=== PATIENT | male | born 1965 | race Caucasian/White ===

== ENCOUNTER 2021-08-30 13:33 | Emergency (ER) | payer OTHER ==
[2021-08-30 15:36] LABS: SARS-COV-2 RT PCR NEGATIVE (NEGATIVE)
--- NOTE | 2021-08-30 16:10 | EDPHYS ---
Physician Documentation [facility] Name: Chris Pinedo Age: 56 yrs Sex: Male : 1965 Arrival Date: 08/30/2021 Time: 13:45 Bed DIS1 Private MD: ED Physician Joaquin Tarango HPI: 08/30 14:17 This 56 yrs old Male presents to ER via Ambulatory with complaints of Sore Throat. jmm 14:17 The patient presents with sore throat. Onset: The symptoms/episode began/occurred jmm gradually, today. Modifying factors: The symptoms are alleviated by nothing, the symptoms are aggravated by nothing. Associated signs and symptoms: Pertinent negatives cough, fever. The patient has not experienced similar symptoms in the past. Historical: - Allergies: 14:12 No Known Allergies; aa5 - PMHx: 14:12 None; aa5 - PSHx: 14:12 None; aa5 - Immunization history:: Client reports receiving the 2nd dose of the Covid vaccine. - Social history:: Smoking status: Patient denies any tobacco usage or history of. ROS: 14:17 Constitutional: Negative for fever, chills, and weight loss. jmm 14:17 ENT: Positive for sore throat. 14:17 All other systems are negative. Exam: 14:17 Constitutional: This is a well developed, well nourished patient who is awake, alert, jmm and in no acute distress. Head/Face: atraumatic. Eyes: EOMI, no conjunctival erythema appreciated 14:17 Neck: Trachea midline, Supple Chest/axilla: Normal chest wall appearance and motion. Cardiovascular: Regular rate and rhythm. No edema appreciated Respiratory: Normal respirations, no respiratory distress appreciated Abdomen/GI: Non distended, soft Back: Normal ROM Skin: General appearance color normal MS/ Extremity: Moves all extremities, no obvious deformities appreciated, no edema noted to the lower extremities Neuro: Awake and alert Psych: Behavior is normal, Mood is normal, Patient is cooperative and pleasant 14:17 ENT: Posterior pharynx: Tonsils: enlarged on the left, with erythema, erythema, that is moderate. Vital Signs: 14:12 BP 144 / 83; Pulse 83; Resp 16 S; Temp 98.3(O); Pulse Ox 100% on R/A; Weight 67.13 kg aa5 (R); Height 5 ft. 8 in. (172.72 cm) (R); 14:12 Body Mass Index 22.50 (67.13 kg, 172.72 cm) aa5 MDM: 14:17 Patient medically screened. [facility] 16:08 Data reviewed: vital signs, nurses notes. Counseling: I had a detailed discussion with [facility] the patient and/or guardian regarding: the historical points, exam findings, and any diagnostic results supporting the discharge/admit diagnosis, the need for outpatient follow up, to return to the emergency department if symptoms worsen or persist or if there are any questions or concerns that arise at home. ED course: Patient is alert and non toxic in appearance in the ED. Patient advised to follow up with pcp and otherwise given strict return precautions, Patient understood and agrees with the plan of care. . 08/30 14:18 Order name: Strep; Complete Time: 15:01 [facility] 08/30 14:18 Order name: COVID-19/FLU A+B (Document "Date of Onset" if Symptomatic); Complete Time: [facility] 15:49 08/30 14:46 Order name: Throat Culture EDMN Administered Medications: No medications were administered Disposition: 18:00 Co-signature as Attending Physician, Joaquin Tarango MD I agree with the assessment and kdr plan of care. Disposition Summary: 08/30/21 16:09 Discharge Ordered Location: Home [facility] Condition: Stable [facility] Diagnosis - Acute pharyngitis, unspecified [facility] Followup: [facility] - With: Private Physician - When: 2 - 3 days - Reason: Recheck today's complaints, Continuance of care, Re-evaluation by your physician Discharge Instructions: - Discharge Summary Sheet [facility] - Pharyngitis [facility] Forms: - Medication Reconciliation Form [facility] - Thank You Letter [facility] - Antibiotic Education [facility] - Prescription Opioid Use [facility] Prescriptions: - Amoxicillin 875 mg Oral Tablet - take 1 tablet by ORAL route every 12 hours for 10 days; 20 tablet; Refills: 0, [facility] Product Selection Permitted Signatures: Dispatcher [employer] EDJoaquin Lilly MD MD kdr Mickail, Joel, PA PA [facility] Lindsey Ybarra, RN RN aa5
--- NOTE | 2021-08-30 16:10 | ER ---
Nurse's Notes [facility] Name: Chris Pinedo Age: 56 yrs Sex: Male : 1965 Arrival Date: 08/30/2021 Time: 13:45 Bed DIS1 Private MD: Diagnosis: Acute pharyngitis, unspecified Presentation: 08/30 14:12 Chief complaint: Patient states: sore throat since this morning. Denies any other aa5 symptoms. Coronavirus screen: sore throat. Ebola Screen: No symptoms or risks identified at this time. Initial Sepsis Screen: Does the patient meet any 2 criteria? No. Patient's initial sepsis screen is negative. Does the patient have a suspected source of infection? No. Patient's initial sepsis screen is negative. Risk Assessment: Do you want to hurt yourself or someone else? Patient reports no desire to harm self or others. Onset of symptoms was August 30, 2021. 14:12 Method Of Arrival: Ambulatory aa5 14:12 Acuity: STEPHANIE 4 aa5 Historical: - Allergies: 14:12 No Known Allergies; aa5 - PMHx: 14:12 None; aa5 - PSHx: 14:12 None; aa5 - Immunization history:: Client reports receiving the 2nd dose of the Covid vaccine. - Social history:: Smoking status: Patient denies any tobacco usage or history of. Screenin:48 Abuse screen: Denies threats or abuse. Denies injuries from another. Nutritional iw screening: No deficits noted. Tuberculosis screening: No symptoms or risk factors identified. Fall Risk None identified. Assessment: 15:48 Reassessment: Patient appears in no apparent distress at this time. Patient and/or iw family updated on plan of care and expected duration. Pain level reassessed. Patient is alert, oriented x 3, equal unlabored respirations, skin warm/dry/pink. Vital Signs: 14:12 BP 144 / 83; Pulse 83; Resp 16 S; Temp 98.3(O); Pulse Ox 100% on R/A; Weight 67.13 kg aa5 (R); Height 5 ft. 8 in. (172.72 cm) (R); 14:12 Body Mass Index 22.50 (67.13 kg, 172.72 cm) aa5 ED Course: 13:45 Patient arrived in ED. am2 13:45 Alon Hoang PA is PHCP. [facility] 13:45 Joaquin Tarango MD is Attending Physician. [facility] 14:12 Arm band placed on. aa 14:14 Triage completed. aa 15:48 Della Amaya, RN is Primary Nurse. iw 15:49 No provider procedures requiring assistance completed. Patient did not have IV access iw during this emergency room visit. 16:35 Patient has correct armband on for positive identification. iw Administered Medications: No medications were administered Outcome: 16:09 Discharge ordered by . [facility] 16:35 Discharged to home ambulatory. iw 16:35 Condition: good 16:35 Discharge instructions given to patient, Instructed on discharge instructions, follow up and referral plans. medication usage, Demonstrated understanding of instructions, follow-up care, medications, Prescriptions given X 1. 16:35 Patient left the ED. iw Signatures: Alon Hoang PA PA [facility] Della Amaya, RN RN Lindsey Ybarra RN RN [facility] Shira Gibbs am2
[2021-08-30] MEDS ORDERED: dexAMETHasone 10 MG/ML VIAL ONE (16:22)
[2021-08-30 17:21] VITALS: BP 144/83; TEMP 98.3; O2SAT 100
== END 2021-08-30 16:35 | disposition home or self-care (01) ==
LOC: ER 13:33
DX: J02.9 Acute pharyngitis, unspecified (principal); Z20.822 Contact with and (suspected) exposure to COVID-19
CPT/HCPCS: 87070; 87081; 0240U; 99282; J1100